=== PATIENT | male | born 1965 | race Caucasian/White ===

== ENCOUNTER 2022-06-23 03:41 | Observation (INO) | payer SELFPAY ==
[2022-06-23 04:08] VITALS: BMI 26.9
[2022-06-23] MEDS ORDERED: ACETAMINOPHEN 1000 MG/100 ML BAG IVPB ONE (04:33)
[2022-06-23] MEDS ORDERED: ACETAMINOPHEN INJECTION 100 ML IVPB ONE (04:57)
[2022-06-23 05:01] LABS: EOS % 4.4 % (0-4.5); HEMATOCRIT 42.4 % (35.4-49); LYMPH % 16.9 % (8-40); MCH 31.1 pg (25.7-33.7); MCHC 35.5 g/dl (32.0-35.9); MEAN CELL VOLUME 87.5 fl (80-96); MEAN PLT VOLUME 8.1 fl (7.5-11.1); MONO % 7.9 % (3.8-10.2); NEUT % 69.8 % (42.8-82.8); PLATELET COUNT 181 10^3/uL (134-434); RBC 4.85 M/mm3 (4.00-5.60); RDW 13.8 % (11.9-15.9); WHITE BLOOD COUNT 8.1 K/mm3 (4.0-10.0)
[2022-06-23 05:13] LABS: INR 1.1 (0.83-1.09); PROTHROMBIN TIME (PATIENT) 12.8 SEC (9.7-13.0)
[2022-06-23 05:16] LABS: ACTIVATED PTT 33.4 SECONDS (25.2-36.5)
[2022-06-23 05:29] LABS: CHLORIDE 106 mmol/L (98-107); SODIUM 142 mmol/L (136-145)
[2022-06-23 05:31] LABS: ALBUMIN 4.2 g/dl (3.4-5.0); ANION GAP 7 MMOL/L (8-16); CALCIUM 8.7 mg/dL (8.5-10.1); CO2 29 mmol/L (21-32); GLUCOSE,RANDOM 138 mg/dL (74-106)
[2022-06-23 05:32] LABS: BLOOD UREA NITROGEN 12.8 mg/dL (7-18)
[2022-06-23 05:34] LABS: CREATININE 0.9 mg/dL (0.55-1.3); SGPT/ALT 45 U/L (13-61)
[2022-06-23 05:35] LABS: SGOT/AST 35 U/L (15-37)
[2022-06-23 05:36] LABS: BILIRUBIN,TOTAL 0.7 mg/dL (0.2-1); TOT PROT 7.7 g/dl (6.4-8.2)
[2022-06-23 05:37] LABS: ALK PHOS 126 U/L (45-117)
[2022-06-23] MEDS ORDERED: ASPIRIN 81 MG CHEWABLE TABLETS PO ONE (05:46)
[2022-06-23] MEDS ORDERED: ASPIRIN 81 MG CHEWABLE TABLETS ONE (06:02)
[2022-06-23 06:49] VITALS: TEMP 98.3
[2022-06-23 08:10] LABS: N-TERMINAL BNP 218.9 pg/ml (5-125)
[2022-06-23 09:12] VITALS: BP 139/106; PULSE 76; RESP 17
[2022-06-23] MEDS ORDERED: HEPARIN NA (PORCINE) 5,000 UNITS/ML 1ML VIAL IVPUSH PRN ×2 (09:37)
[2022-06-23] MEDS ORDERED: HEPARIN INFUSION - 25,000 UNITS/500 ML INFUS.BAG IVPB ONE (09:42)
[2022-06-23] MEDS ORDERED: HEPARIN - 25,000 UNIT in SODIUM CHLORIDE 495 ML IV SCH (09:45)
== END 2022-06-23 10:36 | disposition short-term general hospital (02) ==
LOC: JER 03:41 → JERBED 06:47
PROVIDERS: ADMIT Internal Medicine; ATTEND Internal Medicine
PROC: 3E033NZ Introduction of Analgesics, Hypnotics, Sedatives into Peripheral Vein, Percutaneous Approach (ICD-10-PCS; principal; 2022-06-23)
PROC: 3E033GC Introduction of Other Therapeutic Substance into Peripheral Vein, Percutaneous Approach (ICD-10-PCS; 2022-06-23)
DX: I21.4 Non-ST elevation (NSTEMI) myocardial infarction (principal); R77.8 Other specified abnormalities of plasma proteins; M54.6 Pain in thoracic spine; R07.9 Chest pain, unspecified
CPT/HCPCS: 36415; 71046-TC-FY; 71275-TC; 74174-TC; 80053; 83880; 84484; 85025; 85610; 85730; 93005; 93010; 99285-25; C9803-CS; G0378; J1644; Q9967; U0003; U0005